=== PATIENT | male | born 1935 | race Caucasian/White ===

== ENCOUNTER 2020-10-02 15:42 | Inpatient (IN) | payer MEDICARE ==
--- NOTE | 2020-10-02 15:47 | ERPHSYRPT ---
- History of Present Illness Time Seen by Provider: 10/02/20 15:47 Source: patient Exam Limitations: no limitations Physician History: This is an 85-year-old obese white male patient of Dr. Moya who has some renal insufficiency chronically, [id number] diabetes, hypertension and prostate issues. 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 Patient has had 2-day history of worsening shortness of air. He denies chest pain. He has no fevers. He has no abdominal pain. He has no primary heart problems per his report. 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 Timing/Duration: day(s) Severity of Dyspnea-Max: moderate Severity of Dyspnea-Current: moderate Possible Cause: occasional episodes Modifying Factors: Improves With: activity Associated Symptoms: weakness, leg swelling, No chest pain/discomfort Allergies/Adverse Reactions: No Known Drug Allergies Allergy (Verified 10/02/20 15:56) Home Medications: Allopurinol 300 mg [Zyloprim 300 mg] 300 mg PO DAILY 08/15/13 [History] Aspirin [Aspirin EC] 81 mg PO DAILY 08/15/13 [History] Finasteride 5 mg [Proscar 5 MG] 5 mg PO DAILY 08/15/13 [History] Glyburide/Metformin HCl [Glyburide-Metformin 5-500 mg] 1 tab PO BID 08/15/13 [History] Metformin HCl 500 mg [Glucophage 500 MG] 500 mg PO BID 08/15/13 [History] Pioglitazone HCl [Actos] 15 mg PO DAILY 08/15/13 [History] Simvastatin 20 mg PO DAILY 08/15/13 [History] Terazosin HCl 5 mg [Hytrin 5Mg] 5 mg PO DAILY 08/15/13 [History] Triamterene/Hydrochlorothiazid [Triamterene-Hctz 37.5-25 mg Tb] 1 each PO DAILY 08/15/13 [History] Hx Influenza Vaccination/Date Given: (fall 2012) Hx Pneumococcal Vaccination/Date Given: (2011) - Review of Systems Constitutional: No Symptoms Eyes: No Symptoms Ears, Nose, & Throat: No Symptoms Respiratory: Dyspnea Cardiac: Palpitations Abdominal/Gastrointestinal: No Symptoms Genitourinary Symptoms: No Symptoms Musculoskeletal: No Symptoms Skin: No Symptoms Neurological: No Symptoms Psychological: No Symptoms Endocrine: No Symptoms Hematologic/Lymphatic: No Symptoms Immunological/Allergic: No Symptoms All Other Systems: Reviewed and Negative - Past Medical History Pertinent Past Medical History: No Neurological History: No Pertinent History ENT History: No Pertinent History Cardiac History: High Cholesterol, Hypertension Respiratory History: No Pertinent History Endocrine Medical History: Diabetes Type II Musculoskeletal History: No Pertinent History GI Medical History: Polyps History: Other Psycho-Social History: No Pertinent History Male Reproductive Disorders: Prostate Problems Other Medical History: enlg prostate,states hx of bladder stones - Past Surgical History Past Surgical History: Yes Neuro Surgical History: No Pertinent History Cardiac: No Pertinent History Respiratory: No Pertinent History Gastrointestinal: No Pertinent History Genitourinary: Other Musculoskeletal: Other Male Surgical History: Other Other Surgical History: states bladder stones removed,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 - Social History Smoking Status: Former smoker Exposure to second hand smoke: No Drug Use: none - Nursing Vital Signs Nursing Vital Signs: Initial Vital Signs Temperature 97.1 F 10/02/20 15:43 Pulse Rate 120 H 10/02/20 15:43 Respiratory Rate 25 H 10/02/20 15:43 O2 Sat by Pulse Oximetry 97 10/02/20 15:43 Pain Scale Pain Intensity 0 - Physical Exam General Appearance: mild distress, anxiety, obese Eye Exam: PERRL/EOMI Ears, Nose, Throat Exam: hearing grossly normal Neck Exam: normal inspection Respiratory Exam: normal breath sounds, lungs clear, respiratory distress, airway intact, No chest tenderness Cardiovascular/Chest Exam: tachycardia Abdominal/Gastrointestinal Exam: soft, normal bowel sounds, No tenderness Rectal Exam: not done Extremity Exam: non-tender, normal range of motion, pedal edema Neurologic Exam: alert, oriented x 3, cooperative, awake overnight counselor II-XII nml as tested, normal mood/affect, nml cerebellar function, nml station & gait, sensation nml Skin Exam: normal color, warm, dry Lymphatic Exam: No adenopathy SpO2 Interpretation: normal O2 Delivery: Room Air - Course Nursing assessment & vital signs reviewed: Yes EKG Interpreted by Me: RATE (142), Sinus Tach (Complex), NORMAL AXIS, NORMAL INTERVALS, Left Bundle Branch Block, Other (QRS is 0.128. No acute ischemic changes on today's EKG. There is no comparison EKG available.) Ordered Tests: Active Orders 24 hr Category Date Time Status Sales Promotion Representative STAT Care 10/02/20 16:01 Active EKG-ER Only STAT Care 10/02/20 15:59 Active IV Insertion STAT Care 10/02/20 15:59 Active Pulse Oximetry (ED) STAT Care 10/02/20 15:59 Active CHEST 1 VIEW (PORTABLE) Stat Exams 10/02/20 16:00 Completed CHEST WITH CONTRAST [CT] Stat Exams 10/02/20 18:19 Taken VENOUS BILATERAL EXTREMITY [US] Stat Exams 10/02/20 16:40 Completed BMP Stat Lab 10/02/20 18:40 Completed CBC W DIFF Stat Lab 10/02/20 16:30 Completed CMP Stat Lab 10/02/20 16:30 Completed CULTURE,URINE Stat Lab 10/02/20 21:16 Received D-DIMER QUANTITATIVE Stat Lab 10/02/20 16:40 Completed Lactic Acid Stat Lab 10/02/20 15:59 Completed Lactic Acid Stat Lab 10/02/20 18:15 Completed MAGNESIUM Stat Lab 10/02/20 16:30 Completed NT PRO BNP Stat Lab 10/02/20 16:30 Completed PROTIME WITH INR Stat Lab 10/02/20 16:30 Completed TROPONIN Q3H Lab 10/02/20 16:30 Completed TROPONIN Q3H Lab 10/02/20 18:40 Completed TROPONIN Q3H Lab 10/02/20 22:21 Received TROPONIN Q3H Lab 10/03/20 01:00 Ordered TROPONIN Q3H Lab 10/03/20 04:00 Ordered UA W/RFX UR CULTURE Stat Lab 10/02/20 21:16 Completed Transfer Order Routine Transfer 10/02/20 Ordered Medication Summary Discontinued Medications Generic Name Dose Route Start Last Admin Trade Name Freq PRN Reason Stop Dose Admin Furosemide 40 mg 10/02/20 17:29 10/02/20 17:48 Lasix 40 Mg/4 Ml IV 10/02/20 17:30 40 mg STAT ONE Administration Furosemide Confirm 10/02/20 17:44 Lasix 40 Mg/4 Ml Administered 10/02/20 17:45 Dose 40 mg .ROUTE .STK-MED ONE Sodium Chloride 1,000 mls @ 999 mls/hr 10/02/20 16:23 10/02/20 17:27 Sodium Chloride 0.9% 1000 Ml IV 10/02/20 17:23 Infused .Q1H1M STA Infusion Sodium Chloride Confirm 10/02/20 16:23 Sodium Chloride 0.9% 1000 Ml Administered 10/02/20 16:24 Dose 1,000 mls @ ud .ROUTE .STK-MED ONE Metoprolol Tartrate 2.5 mg 10/02/20 17:32 10/02/20 17:49 Lopressor 5 Mg/5 Ml Injection IV 10/02/20 17:33 2.5 mg STAT ONE Administration Metoprolol Tartrate Confirm 10/02/20 17:44 Lopressor 5 Mg/5 Ml Injection Administered 10/02/20 17:45 Dose 5 mg IV .STK-MED ONE Metoprolol Tartrate 2.5 mg 10/02/20 20:28 10/02/20 20:31 Lopressor 5 Mg/5 Ml Injection IV 10/02/20 20:29 2.5 mg STAT ONE Administration Metoprolol Tartrate Confirm 10/02/20 20:30 Lopressor 5 Mg/5 Ml Injection Administered 10/02/20 20:31 Dose 5 mg IV .STK-MED ONE Lab/Rad Data: Laboratory Result Diagrams 10/02/20 16:30 10/02/20 18:40 Laboratory Results 10/02/20 10/02/20 10/02/20 Range/Units 21:16 18:40 18:40 WBC (4.0-10.5) K/mm3 RBC (4.1-5.6) M/mm3 Hgb (12.5-18.0) gm/dl Hct (42-50) % MCV (78-100) fl MCH (26-32) pg MCHC (32-36) g/dl RDW (11.5-14.0) % Plt Count (150-450) K/mm3 MPV (7.5-11.0) fl Gran % (36.0-66.0) % Eos # (Auto) (0-0.5) Absolute Lymphs (auto) (1.0-4.6) Absolute Monos (auto) (0.0-1.3) Lymphocytes % (24.0-44.0) % Monocytes % (0.0-12.0) % Eosinophils % (0.00-5.0) % Basophils % (0.0-0.4) % Absolute Granulocytes (1.4-6.9) Basophils # (0-0.4) PT (9.4-12.5) SECONDS INR (0.8-3.0) D-Dimer (215-500) ng/mL Sodium 136 L (137-145) mmol/L Potassium 4.8 (3.5-5.1) mmol/L Chloride 103 (98-107) mmol/L Carbon Dioxide 20 L (22-30) mmol/L Anion Gap 16.9 H (5-15) MEQ/L BUN 31 H (9-20) mg/dL Creatinine 1.69 H (0.66-1.25) mg/dL Estimated GFR 41.4 ML/MIN Glucose 168 H (74-106) mg/dL Lactic Acid (0.4-2.0) Calcium 8.3 L (8.4-10.2) mg/dL Magnesium (1.6-2.3) mg/dL Total Bilirubin (0.2-1.3) mg/dL AST (17-59) U/L ALT (0-50) U/L Alkaline Phosphatase (38-126) U/L Troponin I 0.086 H* (0.000-0.034) ng/mL NT-Pro-B Natriuret Pep (0-1800) pg/mL Serum Total Protein (6.3-8.2) g/dL Albumin (3.5-5.0) g/dL Urine Color YELLOW (YELLOW) Urine Appearance SLIGHTLY CLOUDY (CLEAR) Urine pH 5.0 (5-6) Ur Specific [place] 1.016 (1.005-1.025) Urine Protein 30 (Negative) Urine Ketones NEGATIVE (NEGATIVE) Urine Blood SMALL (0-5) Giovanni/ul Urine Nitrite NEGATIVE (NEGATIVE) Urine Bilirubin NEGATIVE (NEGATIVE) Urine Urobilinogen NEGATIVE (0-1) mg/dL Ur Leukocyte Esterase SMALL (NEGATIVE) Urine WBC (Auto) 11-15 (0-5) /HPF Urine RBC (Auto) 16-25 (0-2) /HPF U Hyaline Cast (Auto) 3-5 (0-2) /LPF U Epithel Cells (Auto) NONE (FEW) /HPF Urine Bacteria (Auto) NONE (NEGATIVE) /HPF Urine Mucus (Auto) SLIGHT (NEGATIVE) /HPF Urine Culture Reflexed YES (NO) Urine Glucose NEGATIVE (NEGATIVE) mg/dL 10/02/20 10/02/20 10/02/20 Range/Units 18:15 16:40 16:30 WBC (4.0-10.5) K/mm3 RBC (4.1-5.6) M/mm3 Hgb (12.5-18.0) gm/dl Hct (42-50) % MCV (78-100) fl MCH (26-32) pg MCHC (32-36) g/dl RDW (11.5-14.0) % Plt Count (150-450) K/mm3 MPV (7.5-11.0) fl Gran % (36.0-66.0) % Eos # (Auto) (0-0.5) Absolute Lymphs (auto) (1.0-4.6) Absolute Monos (auto) (0.0-1.3) Lymphocytes % (24.0-44.0) % Monocytes % (0.0-12.0) % Eosinophils % (0.00-5.0) % Basophils % (0.0-0.4) % Absolute Granulocytes (1.4-6.9) Basophils # (0-0.4) PT (9.4-12.5) SECONDS INR (0.8-3.0) D-Dimer 1358 H* (215-500) ng/mL Sodium (137-145) mmol/L Potassium (3.5-5.1) mmol/L Chloride (98-107) mmol/L Carbon Dioxide (22-30) mmol/L Anion Gap (5-15) MEQ/L BUN (9-20) mg/dL Creatinine (0.66-1.25) mg/dL Estimated GFR ML/MIN Glucose (74-106) mg/dL Lactic Acid 1.0 (0.4-2.0) Calcium (8.4-10.2) mg/dL Magnesium (1.6-2.3) mg/dL Total Bilirubin (0.2-1.3) mg/dL AST (17-59) U/L ALT (0-50) U/L Alkaline Phosphatase (38-126) U/L Troponin I 0.085 H* (0.000-0.034) ng/mL NT-Pro-B Natriuret Pep (0-1800) pg/mL Serum Total Protein (6.3-8.2) g/dL Albumin (3.5-5.0) g/dL Urine Color (YELLOW) Urine Appearance (CLEAR) Urine pH (5-6) Ur Specific [place] (1.005-1.025) Urine Protein (Negative) Urine Ketones (NEGATIVE) Urine Blood (0-5) Giovanni/ul Urine Nitrite (NEGATIVE) Urine Bilirubin (NEGATIVE) Urine Urobilinogen (0-1) mg/dL Ur Leukocyte Esterase (NEGATIVE) Urine WBC (Auto) (0-5) /HPF Urine RBC (Auto) (0-2) /HPF U Hyaline Cast (Auto) (0-2) /LPF U Epithel Cells (Auto) (FEW) /HPF Urine Bacteria (Auto) (NEGATIVE) /HPF Urine Mucus (Auto) (NEGATIVE) /HPF Urine Culture Reflexed (NO) Urine Glucose (NEGATIVE) mg/dL 10/02/20 10/02/20 10/02/20 Range/Units 16:30 16:30 16:30 WBC 8.1 (4.0-10.5) K/mm3 RBC 3.73 L (4.1-5.6) M/mm3 Hgb 10.9 L (12.5-18.0) gm/dl Hct 33.9 L (42-50) % MCV 90.9 (78-100) fl MCH 29.2 (26-32) pg MCHC 32.2 (32-36) g/dl RDW 15.3 H (11.5-14.0) % Plt Count 236 (150-450) K/mm3 MPV 10.2 (7.5-11.0) fl Gran % 76.8 H (36.0-66.0) % Eos # (Auto) 0.05 (0-0.5) Absolute Lymphs (auto) 1.34 (1.0-4.6) Absolute Monos (auto) 0.48 (0.0-1.3) Lymphocytes % 16.6 L (24.0-44.0) % Monocytes % 5.9 (0.0-12.0) % Eosinophils % 0.6 (0.00-5.0) % Basophils % 0.1 (0.0-0.4) % Absolute Granulocytes 6.20 (1.4-6.9) Basophils # 0.01 (0-0.4) PT 14.7 H (9.4-12.5) SECONDS INR 1.25 (0.8-3.0) D-Dimer (215-500) ng/mL Sodium 136 L (137-145) mmol/L Potassium 4.7 (3.5-5.1) mmol/L Chloride 104 (98-107) mmol/L Carbon Dioxide 16 L* (22-30) mmol/L Anion Gap 19.4 H (5-15) MEQ/L BUN 32 H (9-20) mg/dL Creatinine 1.60 H (0.66-1.25) mg/dL Estimated GFR 44.1 ML/MIN Glucose 168 H (74-106) mg/dL Lactic Acid (0.4-2.0) Calcium 8.5 (8.4-10.2) mg/dL Magnesium 1.5 L (1.6-2.3) mg/dL Total Bilirubin 0.40 (0.2-1.3) mg/dL AST 27 (17-59) U/L ALT 16 (0-50) U/L Alkaline Phosphatase 65 (38-126) U/L Troponin I (0.000-0.034) ng/mL NT-Pro-B Natriuret Pep 9960 H (0-1800) pg/mL Serum Total Protein 6.9 (6.3-8.2) g/dL Albumin 4.0 (3.5-5.0) g/dL Urine Color (YELLOW) Urine Appearance (CLEAR) Urine pH (5-6) Ur Specific [place] (1.005-1.025) Urine Protein (Negative) Urine Ketones (NEGATIVE) Urine Blood (0-5) Giovanni/ul Urine Nitrite (NEGATIVE) Urine Bilirubin (NEGATIVE) Urine Urobilinogen (0-1) mg/dL Ur Leukocyte Esterase (NEGATIVE) Urine WBC (Auto) (0-5) /HPF Urine RBC (Auto) (0-2) /HPF U Hyaline Cast (Auto) (0-2) /LPF U Epithel Cells (Auto) (FEW) /HPF Urine Bacteria (Auto) (NEGATIVE) /HPF Urine Mucus (Auto) (NEGATIVE) /HPF Urine Culture Reflexed (NO) Urine Glucose (NEGATIVE) mg/dL 10/02/20 Range/Units 15:59 WBC (4.0-10.5) K/mm3 RBC (4.1-5.6) M/mm3 Hgb (12.5-18.0) gm/dl Hct (42-50) % MCV (78-100) fl MCH (26-32) pg MCHC (32-36) g/dl RDW (11.5-14.0) % Plt Count (150-450) K/mm3 MPV (7.5-11.0) fl Gran % (36.0-66.0) % Eos # (Auto) (0-0.5) Absolute Lymphs (auto) (1.0-4.6) Absolute Monos (auto) (0.0-1.3) Lymphocytes % (24.0-44.0) % Monocytes % (0.0-12.0) % Eosinophils % (0.00-5.0) % Basophils % (0.0-0.4) % Absolute Granulocytes (1.4-6.9) Basophils # (0-0.4) PT (9.4-12.5) SECONDS INR (0.8-3.0) D-Dimer (215-500) ng/mL Sodium (137-145) mmol/L Potassium (3.5-5.1) mmol/L Chloride (98-107) mmol/L Carbon Dioxide (22-30) mmol/L Anion Gap (5-15) MEQ/L BUN (9-20) mg/dL Creatinine (0.66-1.25) mg/dL Estimated GFR ML/MIN Glucose (74-106) mg/dL Lactic Acid 2.3 H (0.4-2.0) Calcium (8.4-10.2) mg/dL Magnesium (1.6-2.3) mg/dL Total Bilirubin (0.2-1.3) mg/dL AST (17-59) U/L ALT (0-50) U/L Alkaline Phosphatase (38-126) U/L Troponin I (0.000-0.034) ng/mL NT-Pro-B Natriuret Pep (0-1800) pg/mL Serum Total Protein (6.3-8.2) g/dL Albumin (3.5-5.0) g/dL Urine Color (YELLOW) Urine Appearance (CLEAR) Urine pH (5-6) Ur Specific [place] (1.005-1.025) Urine Protein (Negative) Urine Ketones (NEGATIVE) Urine Blood (0-5) Giovanni/ul Urine Nitrite (NEGATIVE) Urine Bilirubin (NEGATIVE) Urine Urobilinogen (0-1) mg/dL Ur Leukocyte Esterase (NEGATIVE) Urine WBC (Auto) (0-5) /HPF Urine RBC (Auto) (0-2) /HPF U Hyaline Cast (Auto) (0-2) /LPF U Epithel Cells (Auto) (FEW) /HPF Urine Bacteria (Auto) (NEGATIVE) /HPF Urine Mucus (Auto) (NEGATIVE) /HPF Urine Culture Reflexed (NO) Urine Glucose (NEGATIVE) mg/dL - Progress Progress: improved, re-examined Air Movement: fair Progress Note: 10/02/20 17:27 Chest x-ray shows bibasilar vascular congestion and pleural effusions right side greater than left. Venous Doppler of bilateral lower extremities is are negative for DVT. 10/02/20 21:00 CAT scan of the chest with contrast is negative for any pulmonary embolism. There is cardiomegaly with moderate pericardial fluid and small bilateral pleural effusions favoring congestive heart failure. 10/02/20 21:09 Repeat EKG performed at 2104 on 10/02/2020 now shows resolution of wide complex tachycardia. The heart rate is now 98. There is persistent left bundle branch block. There is no evidence of any acute ischemic changes. 10/02/20 21:52 Medical decision making: This patient has congestive heart failure as well as wide-complex tachycardia that has now improved with treatment and has elevated troponin level and renal insufficiency. His elevated troponins may be secondary to cardiac strain from the tachycardia. Patient preferred to be at [facility] in [facility]. However they did not have beds available for this type of patient. They were only taking patients with STEMI's, strokes and trauma patients. We then contacted [facility] in [facility] and they stated that they could put him on the list but it would be at least 24 hours before a bed might become available. I then contacted Dr. Mack who is covering for Dr. Moya, the patient's primary care physician. We both felt that the patient would be best served by coming into the hospital, provide him with diuresis, obtain an echo cardiogram and then consult tele-cardiology tomorrow. Blood Culture(s) Obtained: No Antibiotics given: No Counseled pt/family regarding: lab results, diagnosis, rad results - Departure Departure Disposition: In-patient Admission Clinical Impression: Hypoxia, Congestive heart failure, Non-STEMI (non-ST elevated myocardial infarction), Cardiac enzymes elevated, Renal insufficiency, UTI (urinary tract infection) Condition: Fair Critical Care Time: Yes Critical Care Time(excluding separately billable procedures): Critical 30-74 mins Referrals: IRMA MOYA [Primary Care Provider] - Instructions: Heart Failure
[2020-10-02] MEDS ORDERED: Sodium Chloride 0.9% 1000 ML 1,000 ML ONE (16:23)
[2020-10-02] MEDS ORDERED: Sodium Chloride 0.9% 1000 ML 1,000 ML IV STA (16:23)
[2020-10-02 16:24] LABS: BASOPHIL % 0.1 % (0.0-0.4); Basophil (Absolute #) 0.01 (0-0.4); Eosinophil % 0.6 % (0.00-5.0); Eosinophil (Absolute #) 0.05 (0-0.5); Hematocrit 33.9 % (42-50); Hemoglobin 10.9 gm/dl (12.5-18.0); Lymphocyte (Absolute #) 1.34 (1.0-4.6); Lymphocytes % 16.6 % (24.0-44.0); Mean Cell Volume 90.9 fl (78-100); Mean Corpuscular Hemoglobin 29.2 pg (26-32); Mean Corpuscular Hgb Concent. 32.2 g/dl (32-36); Mean Platelet Volume 10.2 fl (7.5-11.0); Monocyte (Absolute #) 0.48 (0.0-1.3); Monocytes % 5.9 % (0.0-12.0); Neutrophil % 76.8 % (36.0-66.0); Platelet Count 236 K/mm3 (150-450); Red Blood Count 3.73 M/mm3 (4.1-5.6); Red Cell Distribution Width 15.3 % (11.5-14.0); White Blood Count 8.1 K/mm3 (4.0-10.5)
--- NOTE | 2020-10-02 16:26 | XRAY ---
Exam: AP upright portable chest film from 10/02/2020. Comparison: None. Indication: 85-year-old male with shortness of air. Findings: The transverse heart size appears within normal limits. Vascular calcification is seen within the aortic knob and proximal descending thoracic aorta. The patient's chin partially obscures the suprasternal notch and upper medial edge of the right lung apex. There appears to be some mild vascular congestion at both lung bases, right greater than left. In addition, I believe there are mild bibasilar pleural effusions, again greater on the right than left. The upper two thirds of each lung field remain relatively clear. Lateral osteophyte formation is seen within the lower thoracic spine. Osteoarthritic changes are seen within both acromioclavicular joints. Impression: 1. Mild bibasilar vascular congestion and pleural effusions, right greater than left, suggestive of CHF or fluid volume overload.
[2020-10-02 16:31] LABS: INR 1.25 (0.8-3.0); PROTIME 14.7 SECONDS (9.4-12.5)
[2020-10-02 16:45] LABS: ANION GAP 19.4 MEQ/L (5-15); BILIRUBIN,TOTAL 0.4 mg/dL (0.2-1.3); Calcium 8.5 mg/dL (8.4-10.2); Creatinine 1 1.6 mg/dL (0.66-1.25); EST GLOMERULAR FILTRATION RATE 44.1 ML/MIN; MAGNESIUM 1.5 mg/dL (1.6-2.3); Potassium 4.7 mmol/L (3.5-5.1); Total Protein 6.9 g/dL (6.3-8.2)
[2020-10-02] MEDS ORDERED: Lasix 40 MG/4 ML IV ONE (17:29)
[2020-10-02] MEDS ORDERED: LOPRESSOR 5 MG/5 ML INJECTION IV ONE ×4 (17:32→20:30)
[2020-10-02] MEDS ORDERED: Lasix 40 MG/4 ML ONE (17:44)
[2020-10-02 19:03] LABS: ANION GAP 16.9 MEQ/L (5-15); Calcium 8.3 mg/dL (8.4-10.2); Creatinine 1 1.69 mg/dL (0.66-1.25); EST GLOMERULAR FILTRATION RATE 41.4 ML/MIN; Potassium 4.8 mmol/L (3.5-5.1)
--- NOTE | 2020-10-02 19:42 | XRAY ---
Exam: Bilateral lower extremity duplex Doppler venous ultrasound exam from 10/02/2020. Comparison: None. Indication: 85-year-old male with tachycardia; bilateral leg swelling. Technique: Villanueva scale images, color blood flow images, and Doppler tracings without and with signal augmentation were obtained within the major veins of both lower extremities. Findings: On the right side, I note mild fibrocalcific plaque along the anterior aspect of the right common femoral artery. Belt Builder sections of the right common femoral vein, proximal, mid, and distal superficial femoral vein, popliteal vein, and distal posterior tibial veins reveal normal transducer compression, color blood flow, and Doppler signal with augmentation. I note some superficial edema within the soft tissues of the distal right lower extremity. The profunda femoral vein reveals normal color blood flow and Doppler signal augmentation. The greater saphenous vein at the superior femoral vein junction reveals normal transducer compression and color blood flow with Doppler signal augmentation. The mid and distal greater saphenous vein reveals normal transducer compression. On the left side, I again see some mild fibrocalcific plaque of the left common femoral artery. Belt Builder sections of the left common femoral vein, proximal, mid, and distal superficial femoral vein, popliteal vein, and distal posterior tibial veins reveal normal transducer compression, color blood flow, and Doppler signal augmentation throughout. I again see some superficial edema within the distal left lower extremity. Normal color blood flow and Doppler signal augmentation are seen within the left profunda femoral vein. Normal transducer compression is seen within the proximal, mid, and distal greater saphenous vein. Normal color blood flow and Doppler signal augmentation are seen within the greater saphenous vein at the superficial femoral vein junction. Impression: 1. No evidence of deep venous thrombosis is seen within either lower extremity. 2. Nor do I see evidence of superficial venous thrombosis within either lower extremity. 3. There appears to be some subcutaneous edema within both distal lower extremities.
[2020-10-02 21:32] LABS: Appearance SLIGHTLY CLOUDY (CLEAR); Bilirubin NEGATIVE (NEGATIVE); Blood SMALL Ery/ul (0-5); Glucose NEGATIVE (NEGATIVE); Ketones NEGATIVE (NEGATIVE); Leukocyte Esterase SMALL (NEGATIVE); Mucus SLIGHT /HPF (NEGATIVE); Nitrite NEGATIVE (NEGATIVE); Protein,Urine Dip 30 (Negative); Specific Gravity 1.016 (1.005-1.025); Urobilinogen NEGATIVE mg/dL (0-1)
[2020-10-02] MEDS ORDERED: ROCEPHIN 1 Gm-D5w 50 ml Bag** 1 G/50 ML IVPB IV STA (22:46)
[2020-10-02] MEDS ORDERED: Magnesium 1 Gm / 100 Ml D5W*** 100 ML IV ONE ×2 (23:04→23:21)
[2020-10-02] MEDS ORDERED: ROCEPHIN 1 Gm-D5w 50 ml Bag** 1 G/50 ML IVPB IV ONE (23:09)
[2020-10-03] MEDS ORDERED: Heparin 5000 UNITS/0.5 ML (HIGH RISK MED) IV ONE (00:20)
[2020-10-03] MEDS ORDERED: Heparin 5000 UNITS/0.5 ML (HIGH RISK MED) ONE (00:41)
[2020-10-03] MEDS ORDERED: Lasix 40 MG/4 ML IV SCH ×2 (01:09→18:00)
[2020-10-03] MEDS ORDERED: Zofran 4 MG/2 ML VIAL IV PRN (01:09)
[2020-10-03] MEDS ORDERED: HUMULIN R SQ PRN (01:09)
[2020-10-03] MEDS ORDERED: TYLENOL 325 MG PO PRN (01:09)
[2020-10-03] MEDS ORDERED: Sodium Chloride 0.9% 1000 ML 1,000 ML IV SCH (01:09)
[2020-10-03 04:58] LABS: Absolute Neutrophil Ct (ANC) 6.34 (1.4-6.9); BASOPHIL % 0.1 % (0.0-0.4); Basophil (Absolute #) 0.01 (0-0.4); Eosinophil % 0.6 % (0.00-5.0); Eosinophil (Absolute #) 0.05 (0-0.5); Lymphocyte (Absolute #) 1.18 (1.0-4.6); Lymphocytes % 14.5 % (24.0-44.0); Mean Cell Volume 91.4 fl (78-100); Mean Corpuscular Hemoglobin 28.6 pg (26-32); Mean Corpuscular Hgb Concent. 31.3 g/dl (32-36); Mean Platelet Volume 10.2 fl (7.5-11.0); Monocyte (Absolute #) 0.56 (0.0-1.3); Monocytes % 6.9 % (0.0-12.0); Neutrophil % 77.9 % (36.0-66.0); Platelet Count 224 K/mm3 (150-450); Red Cell Distribution Width 15.3 % (11.5-14.0); White Blood Count 8.1 K/mm3 (4.0-10.5)
[2020-10-03 05:24] LABS: ALBUMIN 3.3 g/dL (3.5-5.0); ANION GAP 15.9 MEQ/L (5-15); BILIRUBIN,TOTAL 0.2 mg/dL (0.2-1.3); Calcium 8.2 mg/dL (8.4-10.2); Creatinine 1 1.62 mg/dL (0.66-1.25); EST GLOMERULAR FILTRATION RATE 43.5 ML/MIN; Potassium 4.9 mmol/L (3.5-5.1); Total Protein 5.9 g/dL (6.3-8.2)
[2020-10-03] MEDS ORDERED: HOLD METFORMIN PRODUCTS FOR 48 HOURS MC SCH (08:15)
[2020-10-03] MEDS: Cardizem 30 MG PO SCH ×2 (09:43→14:13)
[2020-10-03] MEDS ORDERED: ECOTRIN 81 MG PO SCH (10:00)
[2020-10-03] MEDS ORDERED: ZYLOPRIM 300 MG PO SCH (10:00)
[2020-10-03] MEDS ORDERED: ZOCOR 20MG PO SCH (10:00)
[2020-10-03] MEDS ORDERED: Actos 30 MG PO SCH (10:00)
[2020-10-03] MEDS ORDERED: PLAVIX 75 MG Tablet PO SCH (10:00)
[2020-10-03] MEDS ORDERED: HYTRIN 1 MG PO SCH (10:00)
[2020-10-03] MEDS ORDERED: Flomax 0.4 MG PO SCH (10:00)
[2020-10-03] MEDS ORDERED: TERAZOSIN HCL 5 MG PO SCH (10:00)
[2020-10-03] MEDS ORDERED: Zocor 10MG PO SCH (10:00)
[2020-10-03] MEDS ORDERED: Proscar 5 MG PO SCH (10:00)
[2020-10-03] MEDS ORDERED: NON-FORMULARY ITEM (Pioglitazone Hcl [Actos] 15 MG) PO SCH (10:00)
[2020-10-03] MEDS ORDERED: FEOSOL 325 MG PO SCH (10:00)
--- NOTE | 2020-10-03 10:06 | XRAY ---
Exam: CT of the chest with IV contrast from 10/02/2020. Comparison: AP upright portable chest radiograph from 10/02/2020. Indication: 85-year-old male with elevated d-dimer of 1358; shortness of air; history of CHF. Technique: Post-IV contrast axial images were obtained through the chest using the PE protocol with 80 ML's of Isovue 370 contrast material. The patient was prehydrated for this exam. Reconstructed coronal and sagittal images were created and reviewed. The pulmonary arteries enhance well and reveal no filling defects to suggest clot/emboli. Significant atherosclerotic vascular calcification and some peripheral low-attenuation plaque are seen throughout the thoracic aorta. I see no thoracic aortic aneurysm or dissection. The heart size is mildly enlarged. I also note a mild pericardial effusion. Coronary artery vascular calcification is evident. No pathological mediastinal or perihilar lymphadenopathy is seen. The thyroid gland appears grossly unremarkable. Small granulomatous calcifications are seen within the distal right paratracheal projection, right hilum, right infrahilar projection, and subcarinal region. Mild bilateral posterior layering pleural effusions are seen, larger on the right than left. These findings favor CHF. I believe there is also some mild patchy atelectasis at both posterior lung bases. The upper and midlung zones appear relatively clear. No pneumothorax is seen. There is a small amount of ascites adjacent to the anterior lateral aspect of the liver within the right upper quadrant. I also note minimal ascites within the left paracolic gutter. The adrenal glands reveal no enlargement or nodules. There appears to be a 2.1 cm in diameter cyst within the anterior aspect of the upper pole of the left kidney. This measures +4.9 Hounsfield units. There is a nonobstructing 11.5 mm stone within the upper pole of the right kidney. I believe there is also a 6.4 mm stone within the lateral aspect of the left kidney. Not all the kidneys have been imaged on this exam. On the 2 most most inferior images, there is a suggestion of a 2.4 cm in diameter possible mass within the posterior aspect of the lower pole of the left kidney. Further evaluation with a renal ultrasound or CT of the abdomen without and with IV contrast is recommended. I also note a 1.1 cm cyst abutting the lateral cortical margin of the left kidney. Incidentally, renal cortex thickness is mildly thinned bilaterally. No hydronephrosis is seen. The distended gallbladder is partially seen and reveals no abnormality. The visualized pancreas and spleen appear remarkable only for a small calcified splenic granuloma. Impression: 1. There is no CT evidence of pulmonary embolus or thoracic aortic aneurysm or dissection. 2. Mild cardiomegaly with mild pericardial effusion and mild bibasilar posterior layering pleural effusions, right greater than left, favoring CHF. There is also small amount of ascites seen within the upper abdomen. 3. The kidneys are incompletely visualized. However, on the 2 most inferior images, there is a question of a round/oval isoattenuated mass within the posterior aspect of the lower pole of the left kidney. I cannot exclude a neoplasm. Consider further evaluation with a renal ultrasound or CT of the abdomen without and with IV contrast is recommended. 4. Old healed granulomatous disease, minimal posterior bibasilar patchy atelectasis, a couple small left renal cysts, bilateral nonobstructing renal calculi (no hydronephrosis), and old healed granulomatous disease are seen.
[2020-10-03] MEDS ORDERED: CARDIZEM DRIP 100 MG/100 ML D5W 100 ML IV PRN (10:46)
--- NOTE | 2020-10-03 15:30 | ECHO ---
Transthoracic echocardiographic examination and color Doppler was done on 10/03/2020. INDICATION: Congestive heart failure. IMPRESSION: 1) SEVERE LEFT VENTRICULAR HYPOKINESIA WITH GLOBAL LEFT VENTRICULAR EJECTION FRACTION OF AROUND 20 TO 25%. 2) MILD TO MODERATE MITRAL REGURGITATION. 3) MILD PERICARDIAL EFFUSION. 4) SUSPICIOUS FOR LEFT VENTRICULAR THROMBUS. 5) DILATED LEFT VENTRICLE. 6) LEFT VENTRICULAR DIASTOLIC DYSFUNCTION. The left ventricle is visualized and demonstrated severe left ventricular hypokinesia with global left ventricular ejection fraction between 20 to 25%. The left ventricle is moderately dilated. The mitral valve is seen and this opens adequately. There is mild to moderate mitral regurgitation. Left atrium is enlarged. The aortic valve appears to open adequately. There is no significant gradient across the left ventricular outflow tract. The right side chambers are mildly dilated. No significant tricuspid regurgitation is seen. There is a suspicious thrombus in the left ventricular apex. There is also mild pericardial effusion. The tissue Doppler study is suggestive of left ventricular diastolic dysfunction.
[2020-10-03] MEDS ORDERED: Toprol Xl 50 MG PO SCH (17:25)
[2020-10-03] MEDS ORDERED: ENOXAPARIN SODIUM SQ SCH (18:00)
[2020-10-03 18:19] VITALS: BP 128/77; PULSE 124; O2SAT 98
[2020-10-03] MEDS ORDERED: ROCEPHIN 1 Gm-D5w 50 ml Bag** 1 G/50 ML IVPB IV SCH (22:00)
--- NOTE | 2020-10-04 09:26 | HP ---
CHIEF COMPLAINT: Shortness of breath. HISTORY OF PRESENT ILLNESS: The patient is an 85 year-old white male patient who has history of renal insufficiency, noninsulin dependent diabetes, hypertension and prostate issues. He has a two day history of worsening shortness of breath and denied any chest pain. He does not have a roping machine tender presently. The patient was evaluated in the emergency room and thought to need to be admitted to the hospital. There were evaluations performed prior to this time that felt the patient may well be better served to go to a higher level facility. However both [facility] and [facility] had no beds for the patient to go to. We therefore admitted the patient to our facility to monitor his serial troponins and obtain tele-cardiology consult. PAST MEDICAL/SURGICAL HISTORY: Otherwise significant for diabetes mellitus type II, benign prostatic hypertrophy, chronic obstructive pulmonary disease and hyperlipidemia. HOME MEDICATIONS: Allopurinol 300 mg a day, aspirin 81 mg a day, Proscar 5 mg a day, Glyburide-Metformin combination tablet 1 twice a day, additional Metformin twice a day 500 mg, Actos 15 mg a day, Simvastatin 20 mg a day, terazosin 5 mg a day, Maxzide 25 daily. ALLERGIES: NKDA. PHYSICAL EXAMINATION: The patient's vital signs on admission showed his temperature to 97.1F, pulse 120, respiratory rate 25. O2 saturation was97%. HEENT: Normocephalic, atraumatic. Pupils equal round reactive to light. Extraocular movements intact. Oropharynx is pink and moist. NECK: Supple without lymphadenopathy, thyromegaly or JVD. CHEST: Essentially clear by the time that I listened to him. HEART: Irregular rate and rhythm and at the time I saw him running in the 90's. His EKG showed initially sinus tachycardia of 142 with wide left bundle branch block type of pattern. There were no obvious ischemic changes noted on initial admission that we could tell. LAB DATA AND TESTS: Echocardiogram which we do not have back but showed severe left ventricular hyperkinesia with left ventricular ejection fraction of around 20-25%. He has mild to moderate mitral regurgitation and mild pericardial effusion suspicious potential left ventricular apical thrombus, dilated left ventricle and left ventricular diastolic dysfunction. The patient's troponins have remained elevated with the most recent one 0.107 and I believe initially he was at 0.08. Lactic acid 2.3 initially. INR was 1.25. D-Dimer was elevated at 1358. Lactic acid recheck was 1.0. His metabolic panel showed sugar of 168, BUN 28, creatinine 1.60. Sodium slightly low at 136. CO2 was at 16. ProBNP was 9960. UA showed 11-15 white blood cells and 16-25 red blood cells per high power field, specific gravity 1.016. Nitrite however was negative. He did have slight protein in his urine. COVID test was negative. ASSESSMENT: The patient will be seen with tele-cardiology consult for worrisome for his ejection fraction, possible left ventricular thrombus. Again the patient currently is in our facility because we were unable to transfer him due to no beds at the other facilities. He is pending cardiology consultation presently and will plan to increase his blood thinners due to the thrombus in left ventricle. We also ended up having to put him on a Cardizem drip due to his heart rate increasing again given what appears to be atrial fibrillation with rapid ventricular response being initial problem but due to the left bundle branch block pattern it was difficult to tell initially.
[2020-10-05] MEDS ORDERED: Glucophage 500 MG PO SCH (08:00)
== END 2020-10-03 18:18 | disposition home or self-care (01) | DRG 292 ==
LOC: ED 15:42 → MED SURG 10-03 01:03 → ICU 10-03 10:45
PROVIDERS: ADMIT Family Medicine; ATTEND Family Medicine
DX: I11.0 Hypertensive heart disease with heart failure (principal); I31.3 Pericardial effusion (noninflammatory); N39.0 Urinary tract infection, site not specified; I50.9 Heart failure, unspecified; E11.9 Type 2 diabetes mellitus without complications; Z79.899 Other long term (current) drug therapy; M79.89 Other specified soft tissue disorders; J44.9 Chronic obstructive pulmonary disease, unspecified; E78.5 Hyperlipidemia, unspecified; I34.0 Nonrheumatic mitral (valve) insufficiency; I48.91 Unspecified atrial fibrillation; Z20.828 Contact with and (suspected) exposure to other viral communicable diseases; R09.02 Hypoxemia; N28.9 Disorder of kidney and ureter, unspecified
CPT/HCPCS: 36000; 36415; 71045; 71260; 80048; 80053; 81001; 82947; 83605; 83735; 83880; 84484; 85025; 85379; 85610; 87086; 93005; 93041; 93306; 93970; 94760; 96360; 96374; 96375; 96376; 99285; 99291; Q3014; U0003; J0696; J1644; J1650; J1940; J3475; A9270-GY